=== PATIENT | female | born 1960 | race Caucasian/White ===

== ENCOUNTER → 2016-12-15 | Outpatient (CLI) | payer OTHER ==
--- NOTE | ~2016-12-15 | PUL ---
PATIENT'S NAME: KORTNEY MELO [facility] AGE: 56 Y [address] ROOM: [place] [id number] LOCATION: [facility] ADMIT DATE: 12/15/2016 Pulmonary DISCHARGE DATE: FAMILY PHYSICIAN: La Lee PA-C ATTENDING PHYSICIAN: BELINDA NGUYEN ACTIVITY: Pulmonary Function Test with Methacholine Challenge DATE OF PROCEDURE: December 15, 2016 TECH: ATripe, SUPERVISOR NET MAKING REASON FOR EXAM: Chronic cough RESULTS: 1. FVC was 3.83 liters which is 104% of predicted and normal, FEV1 was 3.02 liters which is 105% of predicted and normal, and FEV1/FVC was 79% and normal. The flow volume curve did not reveal any significant airflow limitation. After bronchodilator administration FVC increased to 3.9 liters which is a 2% increase and FEV1 decreased to 3.01 liters. FEV1/FVC was 77%. 2. DLCO was 16.8 with an adjusted DLCO of 18.1 which is 80% of predicted and normal. 3. Total lung capacity was 6.92 liters which is 130% of predicted and high, and residual volume was 3.09 liters which is 157% of predicted and high. 4. The patient was administered progressively higher concentrations of methacholine solution. At the highest concentration her FEV1 dropped by only 4%. PHYSICIAN INTERPRETATION: The patient has no airflow limitation and no significant bronchodilator response. Her diffusion capacity is normal. There is evidence of hyperinflation and air trapping on the lung volumes. She has a negative methacholine challenge test. MD MARIE PEÑA/river /[id number] dtt: 12/18/16 0952 , BELINDA NGUYEN dtd: 12/18/16 0727
== END | disposition disaster alternative care site (69) ==
LOC: GRAD 12-09 14:00
DX: J31.0 Chronic rhinitis (principal); R05 Cough
CPT/HCPCS: J7674